=== PATIENT | male | born 1995 | race Two or more races ===

== ENCOUNTER 2025-05-11 12:32 | Emergency (ER) | payer MEDICAID, OTHER ==
[~2025-05-11] VITALS: Ht 175.3 cm; Wt 65.9 kg
[2025-05-11 12:32] VITALS: BP 103/74; PULSE 87; RESP 18; TEMP 98.9; O2SAT 96
== END 2025-05-11 13:44 | disposition left against medical advice (07) ==
LOC: ER 12:32 → EDBD 12:32 → ER 13:44
DX: F41.9 Anxiety disorder, unspecified (principal); Z53.21 Procedure and treatment not carried out due to patient leaving prior to being seen by health care provider